=== PATIENT | male | born 1985 | race Caucasian/White ===

== ENCOUNTER 2018-01-26 15:49 | Inpatient (IN) | payer OTHER ==
[2018-01-26 16:55] VITALS: BMI 26.6
--- NOTE | 2018-01-26 21:55 | HP ---
COWS - Scale Resting Pulse: 0= GA 80 or Below Sweatin= Chills/Flushing Restless Observation: 1= Difficult to Sit Still Pupil Size: 1= Pupils >than Normal Bone or Joint Aches: 1= Mild Discomfort Runny Nose/ Eye Tearin= Constantly Teary/Runny GI Upset > 30mins: 1= Stomach Cramp Tremor Observation: 1= Tremor [place], Not Seen Yawning Observation: 2= >3x During Session Anxiety or Irritability: 2=Irritable/Anxious Goose Flesh Skin: 0=Smooth Skin COWS Score: 14 CIWA Score - CIWA Score Nausea/Vomitin-No Nausea/No Vomiting Muscle Tremors: 2 Anxiety: 3 Agitation: 4-Moderately Restless Paroxysmal Sweats: 2 Orientation: 0-Oriented Tacttile Disturbances: 0-None Auditory Disturbances: 0-None Visual Disturbances: 2-Mild Sensitivity Headache: 0-None Present CIWA-Ar Total Score: 13 Admission ROS S - HPI Chief Complaint: opioid and xanax withdrawal symptoms Allergies/Adverse Reactions: Allergies Allergy/AdvReac Type Severity Reaction Status Date / Time No Known Allergies Allergy Verified 01/26/18 21:54 History of Present Illness: 32 yo male with hx of heroin (nasal), cocaine and xanax dependence is here seeking detox. Last detox [facility] six years ago. Patient currently on parole for attempted robbery . PMHX: Denies any psychiatric or medical problems at this time. Denies suicidal / homicidal ideation or hx suicide attempt. Longest period of sobriety three years. Exam Limitations: No Limitations - Ebola screening Have you traveled outside of the country in the last 21 days: No Have you had contact with anyone from an Ebola affected area: No Have you been sick,other than usual withdrawal symptoms: No Do you have a fever: No - Review of Systems Constitutional: Chills, Loss of Appetite, Changes in sleep, Unintentional Wgt. Loss (20 lbs since july 2017) EENT: reports: Nose Congestion Respiratory: reports: No Symptoms reported Cardiac: reports: No Symptoms Reported GI: reports: Constipated (last BM two days ago), Abdominal cramping : reports: No Symptoms Reported Musculoskeletal: reports: Back Pain, Joint Pain Integumentary: reports: No Symptoms Reported Neuro: reports: No Symptoms reported Endocrine: reports: Increased Thirst Hematology: reports: No Symptoms Reported Psychiatric: reports: Orientated x3, Anxious Other Systems: Reviewed and Negative Patient History - Patient Medical History Hx Anemia: No Hx Asthma: No Hx Chronic Obstructive Pulmonary Disease (COPD): No Hx Cancer: No Hx Cardiac Disorders: No Hx Congestive Heart Failure: No Hx Hypertension: No Hx Hypercholesterolemia: No Hx Pacemaker: No HX Cerebrovascular Accident: No Hx Seizures: No Hx Dementia: No Hx Diabetes: No Hx Gastrointestinal Disorders: No Hx Liver Disease: No Hx Genitourinary Disorders: No Hx Sexually Transmitted Disorders: No Hx Renal Disease (ESRD): No Hx Thyroid Disease: No Hx Human Immunodeficiency Virus (HIV): No Hx Hepatitis C: No Hx Depression: No Hx Suicide Attempt: No Hx Bipolar Disorder: No Hx Schizophrenia: No - Patient Surgical History Past Surgical History: No - PPD History Previous Implant?: No Documented Results: Negative w/o proof PPD to be Administered?: Yes - Smoking Cessation Smoking history: Current every day smoker Have you smoked in the past 12 months: Yes Aproximately how many cigarettes per day: 20 Hx Chewing Tobacco Use: No Initiated information on smoking cessation: Yes 'Breaking Loose' booklet given: 01/26/18 - Substance & Tx. History Hx Alcohol Use: No Hx Substance Use: Yes Substance Use Type: Cocaine, Heroin, Tranquilizers Hx Substance Use Treatment: Yes (Last detox [facility] six years ago.) - Substances Abused Heroin Route: Inhalation Frequency: Daily Age of first use: 24 Date of Last Use: 01/26/18 Alprazolam (Xanax) Route: Oral Frequency: Daily Amount used: 2mg Age of first use: 22 Date of Last Use: 01/25/18 Cocaine Route: Inhalation Frequency: 1-3 times last 30 days Amount used: $20 Age of first use: 22 Date of Last Use: 01/25/18 Family Disease History - Family Disease History Family History: Denies Admission Physical Exam S - Vital Signs Vital Signs: Vital Signs - 24 hr 01/26/18 16:52 Temperature 97.8 F Pulse Rate 79 Respiratory 18 Rate Blood Pressure 137/68 - Physical General Appearance: Yes: Nourished, Disheveled, Mild Distress, Anxious HEENTM: Yes: EOMI, Hearing grossly Normal, Normal ENT Inspection, Normocephalic , Normal Voice, PILO, Pharynx Normal, Rhinorrhea Respiratory: Yes: Chest Non-Tender, Lungs Clear, Normal Breath Sounds, No Respiratory Distress, No Accessory Muscle Use Neck: Yes: No masses,lesions,Nodules, Trachea in good position Breast: Yes: Breast Exam Deferred Cardiology: Yes: Regular Rhythm, Regular Rate Abdominal: Yes: Normal Bowel Sounds, Non Tender, Flat, Soft Genitourinary: Yes: Within Normal Limits Back: Yes: Normal Inspection Extremities: Yes: Normal Capillary Refill, Normal Inspection, Normal Range of Motion, Non-Tender Neurological: Yes: smooth and burr worker composites II-XII NML intact, Fully Oriented, Alert, Motor Strength 5/5, Depressed Affect Integumentary: Yes: Normal Color, Warm, Diaphoresis Lymphatic: Yes: Within Normal Limits - Diagnostic (1) Opioid dependence with withdrawal Current Visit: Yes Status: Acute (2) Cocaine dependence Current Visit: Yes Status: Acute Qualifiers: Substance use status: uncomplicated Qualified Code(s): F14.20 - Cocaine dependence, uncomplicated (3) Nicotine dependence Current Visit: Yes Status: Acute Qualifiers: Nicotine product type: cigarettes (4) Weight loss Current Visit: Yes Status: Acute (5) Sedative hypnotic or anxiolytic dependence Current Visit: Yes Status: Acute Cleared for Admission [facility] - Detox or Rehab [facility] Level of Care: Medically Managed Detox Regimen/Protocol: Methadone/Valium S Breath Alcohol Content Breath Alcohol Content: 0 Urine Drug Screen - Results Drug Screen Negative: No Urine Drug Screen Results: THC-Marijuana, SAHIL-Cocaine, OPI-Opiates, BZO- Benzodiazepines, FEN-Fentanyl
[2018-01-26] MEDS ORDERED: MAG HYDROX/AL HYDROX/SIMETH 30 ML UNIT-DOSE CUP PO PRN (22:01)
[2018-01-26] MEDS ORDERED: METHADONE HCL 10 MG TABLET (FOR DETOX USE ONLY) PO ONE ×2 (22:01→23:00)
[2018-01-26] MEDS ORDERED: MAGNESIUM HYDROX 2400MG/30ML ORAL SUSPENSION 30 ML CUP PO PRN (22:01)
[2018-01-26] MEDS ORDERED: LOPERAMIDE HCL 2 MG CAPSULE PO PRN (22:01)
[2018-01-26] MEDS ORDERED: NICOTINE POLACRILEX 2 MG GUM BC PRN (22:01)
[2018-01-26] MEDS ORDERED: diazePAM 5 MG TABLET PO ONE (22:01)
[2018-01-26] MEDS ORDERED: MENTHOL/PHENOL 1 EACH UD MM PRN (22:01)
[2018-01-26] MEDS ORDERED: diazePAM 5 MG TABLET PO PRN (22:01)
[2018-01-26] MEDS ORDERED: MAGNESIUM CITRATE 300 ML BOTTLE PO PRN (22:01)
[2018-01-26] MEDS ORDERED: ACETAMINOPHEN 325 MG TABLET (FP) PO PRN (22:01)
[2018-01-26] MEDS ORDERED: P-EPHED 60MG/TRIPROLIDI 2.5MG TABLET PO PRN (22:01)
[2018-01-26] MEDS ORDERED: IBUPROFEN 400 MG TABLET (FP) PO PRN (22:01)
[2018-01-26] MEDS ORDERED: guaiFENesin/D-METHORPHAN HB 10 ML UNIT-DOSE CUPS PO PRN (22:01)
[2018-01-26] MEDS: diazePAM 5 MG TABLET PO SCH ×2 (23:49→23:59)
[2018-01-27 00:08] LABS: URINE APPEARANCE CLEAR; URINE BILIRUBIN NEGATIVE (<2.0 mg/dL); URINE COLOR YELLOW; URINE GLUCOSE (UA) NEGATIVE (NEGATIVE); URINE KETONE TRACE (NEGATIVE); URINE LEUK ESTERASE NEGATIVE (NEGATIVE); URINE NITRITE NEGATIVE (NEGATIVE); URINE PROTEIN NEGATIVE (NEGATIVE)
[2018-01-27] MEDS: diazePAM 5 MG TABLET PO SCH ×4 (05:43→22:41)
[2018-01-27] MEDS ORDERED: METHADONE HCL 10 MG TABLET (FOR DETOX USE ONLY) PO SCH (10:00)
[2018-01-27 10:40] LABS: HEMATOCRIT 44.1 % (35.4-49); HEMOGLOBIN 14.3 GM/dL (11.7-16.9); MCHC 32.4 g/dl (32.0-35.9); MEAN CELL VOLUME 89.6 fl (80-96); MEAN PLT VOLUME 10.5 fl (7.5-11.1); PLATELET COUNT 213 K/MM3 (134-434); RBC 4.92 M/mm3 (4.00-5.60); RDW 13.9 % (11.9-15.9); WHITE BLOOD COUNT 6.8 K/mm3 (4.0-10.0)
[2018-01-27] MEDS: NICOTINE 21 MG/24 HOURS TOPICAL PATCH TD SCH (10:42)
[2018-01-27] MEDS: PRENATAL VITAMINS W/ FOLIC ACID TABLET (FP) PO SCH (10:42)
[2018-01-27 10:55] LABS: CHLORIDE 106 mmol/L (98-107); POTASSIUM 4.3 mmol/L (3.5-5.1); SODIUM 143 mmol/L (136-145)
[2018-01-27 11:17] LABS: ALBUMIN 3.8 g/dl (3.4-5.0); ALK PHOS 81 U/L (45-117); ANION GAP 8 MMOL/L (8-16); BILIRUBIN,TOTAL 0.4 mg/dL (0.2-1.0); BLOOD UREA NITROGEN 16 mg/dL (7-18); CALCIUM 8.9 mg/dL (8.5-10.1); CO2 29 mmol/L (21-32); GLUCOSE,RANDOM 86 mg/dL (74-106); SGOT/AST 33 U/L (15-37); SGPT/ALT 59 U/L (13-61); TOT PROT 6.9 g/dl (6.4-8.2)
--- NOTE | 2018-01-27 12:30 | CONSULT ---
[facility] Psychiatric Consult - Data Date of interview: 01/27/18 Admission source: [facility] Identifying data: Patient is a 32 year old single male, without children, unemployed, domiciled, and is supported by family. This is patient's first admission to detox at [facility]. Pt. admited to for opiate dependence. Substance Abuse History: Smoking Cessation. Smoking history: Current every day smoker. Have you smoked in the past 12 months: Yes. Aproximately how many cigarettes per day: 20. Hx Chewing Tobacco Use: No. Initiated information on smoking cessation: Yes. 'Breaking Loose' booklet given: 01/26/18. - Substance & Tx. History. Hx Alcohol Use: No. Hx Substance Use: Yes. Substance Use Type : Cocaine, Heroin, Tranquilizers. Hx Substance Use Treatment: Yes (Last detox [facility] six years ago.). - Substances Abused. Heroin. Route: Inhalation. Frequency: Daily. Age of first use: 24. Date of Last Use: . Alprazolam (Xanax). Route: Oral. Frequency: Daily. Amount used: 2mg. Age of first use: 22. Date of Last Use: 01/25/18. Cocaine. Route: Inhalation. Frequency: 1-3 times last 30 days. Amount used: $20. Age of first use: 22. Date of Last Use: 01/25/18 Medical History: denies. Psychiatric History: Patient denies h/o psychiatric hospitalization, outpatient care, and suicide attempt. Pt. reports poor sleep. Physical/Sexual Abuse/Trauma History: denies Mental Status Exam - Mental Status Exam Alert and Oriented to: Time, Place, Person Cognitive Function: Good Patient Appearance: Well Groomed Mood: Euthymic Affect: Mood Congruent Patient Behavior: Fatigued (Patient falling asleep but able to complete interview. ), Cooperative Speech Pattern: Delayed Voice Loudness: Moderately Soft/Quiet Thought Process: Goal Oriented Thought Disorder: Not Present Hallucinations: Denies Suicidal Ideation: Denies Homicidal Ideation: Denies Insight/Judgement: Poor Sleep: Poorly Appetite: Fair Muscle strength/Tone: Normal Gait/Station: Normal Psychiatric Findings - Problem List ([place] 1, 2,3) (1) Cocaine dependence Current Visit: Yes Status: Acute Qualifiers: Substance use status: uncomplicated Qualified Code(s): F14.20 - Cocaine dependence, uncomplicated (2) Nicotine dependence Current Visit: Yes Status: Chronic Qualifiers: Nicotine product type: cigarettes (3) Opioid dependence with withdrawal Current Visit: Yes Status: Acute (4) Sedative hypnotic or anxiolytic dependence Current Visit: Yes Status: Acute (5) Substance-induced sleep disorder Current Visit: Yes Status: Acute - Initial Treatment Plan Initial Treatment Plan: Psychoeducation provided. Detoxification in progress. Pt. informed to accept melatonin 5mg for insomnia. Observation.
--- NOTE | 2018-01-27 14:38 | PN ---
S CIWA - CIWA Score Nausea/Vomitin-No Nausea/No Vomiting Muscle Tremors: 1-None Visible, but [place] Anxiety: 2 Agitation: 0-Normal Activity Paroxysmal Sweats: No Perspiration Orientation: 0-Oriented Tacttile Disturbances: 0-None Auditory Disturbances: 0-None Visual Disturbances: 0-None Headache: 0-None Present CIWA-Ar Total Score: 3 [facility] COWS - Scale Resting Pulse: 0= [place] 80 or Below Sweatin= No chills or Flushing Restless Observation: 0= Sits Still Pupil Size: 0= Normal to Room Light Bone or Joint Aches: 1= Mild Discomfort Runny Nose/ Eye Tearin= None GI Upset > 30mins: 1= Stomach Cramp Tremor Observation of Outstretched Hands: 1= Tremor [place], Not Seen Yawning Observation: 0= None Anxiety or Irritability: 1=Feels Anxious/Irritable Goose Flesh Skin: 0=Smooth Skin COWS Score: 4 S Progress Note (SOAP) Subjective: PATIENT C/O MILD TREMORS, ANXIETY AND BODY ACHES. Objective: 01/27/18 14:37 Vital Signs Temperature 97.2 F L 01/27/18 13:41 Pulse Rate 72 01/27/18 13:41 Respiratory Rate 18 01/27/18 13:41 Blood Pressure 116/84 01/27/18 13:41 O2 Sat by Pulse Oximetry (%) Laboratory Tests 01/26/18 01/27/18 01/27/18 Unknown 07:00 07:00 WBC 6.8 RBC 4.92 Hgb 14.3 Hct 44.1 MCV 89.6 MCH 29.0 MCHC 32.4 RDW 13.9 Plt Count 213 MPV 10.5 Sodium 143 Potassium 4.3 Chloride 106 Carbon Dioxide 29 Anion Gap 8 BUN 16 Creatinine 1.0 Creat Clearance w eGFR > 60 Random Glucose 86 Calcium 8.9 Total Bilirubin 0.4 AST 33 ALT 59 Alkaline Phosphatase 81 Total Protein 6.9 Albumin 3.8 Urine Color Yellow Urine Appearance Clear Urine pH 6.0 Ur Specific [place] 1.027 Urine Protein Negative Urine Glucose (UA) Negative Urine Ketones Trace H Urine Blood Negative Urine Nitrite Negative Urine Bilirubin Negative Urine Urobilinogen 2.0 Ur Leukocyte Esterase Negative RPR Titer HIV 1&2 Antibody Screen HIV P24 Antigen 01/27/18 01/27/18 07:00 07:00 WBC RBC Hgb Hct MCV MCH MCHC RDW Plt Count MPV Sodium Potassium Chloride Carbon Dioxide Anion Gap BUN Creatinine Creat Clearance w eGFR Random Glucose Calcium Total Bilirubin AST ALT Alkaline Phosphatase Total Protein Albumin Urine Color Urine Appearance Urine pH Ur Specific [place] Urine Protein Urine Glucose (UA) Urine Ketones Urine Blood Urine Nitrite Urine Bilirubin Urine Urobilinogen Ur Leukocyte Esterase RPR Titer Nonreactive HIV 1&2 Antibody Screen Negative HIV P24 Antigen Negative Assessment: 01/27/18 14:37 WITHDRAWAL SYNDROME Plan: CONTINUE DETOX PER PROTOCOL.
--- NOTE | 2018-01-27 15:41 | EKG ---
Test Reason : Blood Pressure : / mmHG Vent. Rate : 080 BPM Atrial Rate : 080 BPM P-R Int : 174 ms QRS Dur : 084 ms QT Int : 368 ms P-R-T Axes : 042 066 006 degrees QTc Int : 424 ms NORMAL SINUS RHYTHM NORMAL ECG NO PREVIOUS ECGS AVAILABLE Confirmed by DECLAN SMART MD ([id number]) on 01/27/2018 3:41:34 PM Referred By: Confirmed By:DECLAN SMART MD
[2018-01-27] MEDS: THIAMINE HCL 100 MG TABLET (FP) PO SCH (22:40)
--- NOTE | 2018-01-28 10:37 | PN ---
[facility] CIWA - CIWA Score Nausea/Vomitin-No Nausea/No Vomiting Muscle Tremors: None Anxiety: 0-No Anxiety, at Ease Agitation: 0-Normal Activity Paroxysmal Sweats: 1-Minimal Palms Moist Orientation: 0-Oriented Tacttile Disturbances: 0-None Auditory Disturbances: 0-None Visual Disturbances: 0-None Headache: 0-None Present CIWA-Ar Total Score: 1 [facility] COWS - Scale Resting Pulse: 0= [place] 80 or Below Sweatin= No chills or Flushing Restless Observation: 0= Sits Still Pupil Size: 0= Normal to Room Light Bone or Joint Aches: 0= None Runny Nose/ Eye Tearin= Nasal Congestion GI Upset > 30mins: 0= None Tremor Observation of Outstretched Hands: 0= None Yawning Observation: 0= None Anxiety or Irritability: 0= None Goose Flesh Skin: 0=Smooth Skin COWS Score: 1 [facility] Progress Note (SOAP) Subjective: PATIENT C/O MILD NASAL CONGESTION AND COLD SWEATS Objective: 01/28/18 10:36 Laboratory Tests 01/26/18 01/27/18 01/27/18 Unknown 07:00 07:00 WBC 6.8 RBC 4.92 Hgb 14.3 Hct 44.1 MCV 89.6 MCH 29.0 MCHC 32.4 RDW 13.9 Plt Count 213 MPV 10.5 Sodium 143 Potassium 4.3 Chloride 106 Carbon Dioxide 29 Anion Gap 8 BUN 16 Creatinine 1.0 Creat Clearance w eGFR > 60 Random Glucose 86 Calcium 8.9 Total Bilirubin 0.4 AST 33 ALT 59 Alkaline Phosphatase 81 Total Protein 6.9 Albumin 3.8 Urine Color Yellow Urine Appearance Clear Urine pH 6.0 Ur Specific [place] 1.027 Urine Protein Negative Urine Glucose (UA) Negative Urine Ketones Trace H Urine Blood Negative Urine Nitrite Negative Urine Bilirubin Negative Urine Urobilinogen 2.0 Ur Leukocyte Esterase Negative RPR Titer HIV 1&2 Antibody Screen HIV P24 Antigen 01/27/18 01/27/18 07:00 07:00 WBC RBC Hgb Hct MCV MCH MCHC RDW Plt Count MPV Sodium Potassium Chloride Carbon Dioxide Anion Gap BUN Creatinine Creat Clearance w eGFR Random Glucose Calcium Total Bilirubin AST ALT Alkaline Phosphatase Total Protein Albumin Urine Color Urine Appearance Urine pH Ur Specific [place] Urine Protein Urine Glucose (UA) Urine Ketones Urine Blood Urine Nitrite Urine Bilirubin Urine Urobilinogen Ur Leukocyte Esterase RPR Titer Nonreactive HIV 1&2 Antibody Screen Negative HIV P24 Antigen Negative Vital Signs Temperature 97.7 F 01/28/18 09:59 Pulse Rate 94 H 01/28/18 09:59 Respiratory Rate 20 01/28/18 09:59 Blood Pressure 118/75 01/28/18 09:59 O2 Sat by Pulse Oximetry (%) SKIN: WARM AND MOIST CAR : S1S2 RESP: CTA BL EXT: NO EDEMA Assessment: 01/28/18 10:37 WITHDRAWAL SYNDROME Plan: CONTINUE DETOX PER PROTOCOL ENCOURAGE ORAL FLUIDS CONTINUE TO MONITOR CLINICALLY
[2018-01-28] MEDS: NICOTINE 21 MG/24 HOURS TOPICAL PATCH TD SCH (10:42)
[2018-01-28] MEDS: diazePAM 5 MG TABLET PO SCH ×2 (10:43→22:32)
[2018-01-28] MEDS: METHADONE HCL 5 MG TABLET (FOR DETOX USE ONLY) PO SCH (10:43)
[2018-01-28] MEDS: PRENATAL VITAMINS W/ FOLIC ACID TABLET (FP) PO SCH (10:43)
[2018-01-28] MEDS ORDERED: ONDANSETRON 8 MG TABLET (FP) PO PRN (12:25)
[2018-01-28] MEDS: THIAMINE HCL 100 MG TABLET (FP) PO SCH (22:32)
[2018-01-29] MEDS: PRENATAL VITAMINS W/ FOLIC ACID TABLET (FP) PO SCH (10:41)
[2018-01-29] MEDS: diazePAM 5 MG TABLET PO SCH ×2 (10:41→22:55)
[2018-01-29] MEDS: METHADONE HCL 5 MG TABLET (FOR DETOX USE ONLY) PO SCH (10:41)
[2018-01-29] MEDS: NICOTINE 21 MG/24 HOURS TOPICAL PATCH TD SCH (10:42)
--- NOTE | 2018-01-29 14:12 | PN ---
[facility] Progress Note (SOAP) Subjective: patient reports feeling nauseous , fatigued Objective: 01/29/18 14:11 CBC, BMP 01/27/18 07:00 01/27/18 07:00 Vital Signs Temperature 97.3 F L 01/29/18 11:08 Pulse Rate 80 01/29/18 11:08 Respiratory Rate 20 01/29/18 11:08 Blood Pressure 118/77 01/29/18 11:08 O2 Sat by Pulse Oximetry (%) aaox 3 , nad , resting comfortably in bed Assessment: 01/29/18 14:11 opioid and benzodiazepine dependence Plan: continue taper , prn meds for symptomatic relief encouraged p.o. fluids
[2018-01-29] MEDS: THIAMINE HCL 100 MG TABLET (FP) PO SCH (22:55)
[2018-01-29] MEDS: MELATONIN 5 MG TABLETS PO PRN (22:55)
[2018-01-30] MEDS ORDERED: diazePAM 5 MG TABLET PO SCH (10:00)
[2018-01-30] MEDS ORDERED: METHADONE HCL 10 MG TABLET (FOR DETOX USE ONLY) PO SCH (10:00)
[2018-01-30] MEDS: PRENATAL VITAMINS W/ FOLIC ACID TABLET (FP) PO SCH (10:55)
[2018-01-30] MEDS: NICOTINE 21 MG/24 HOURS TOPICAL PATCH TD SCH (10:56)
--- NOTE | 2018-01-30 15:19 | PN ---
[facility] Progress Note (SOAP) Subjective: Chills, sweating, interrupted sleep (no sleep x 2 days); patient later told nurse that his PCP referred him for circumcision and that his foreskin on penis is hurting. Starting Gate Driver instructed RN to offer pain medication and instruct patient to follow up with his PCP. Patient is for discharge home tomorrow. Objective: 01/30/18 15:17 Last Vital Signs Temp Pulse Resp BP Pulse Ox 98.0 F 97 H 18 101/67 01/30/18 13:56 01/30/18 13:56 01/30/18 13:56 01/30/18 13:56 Laboratory Tests 01/26/18 01/27/18 01/27/18 Unknown 07:00 07:00 WBC 6.8 RBC 4.92 Hgb 14.3 Hct 44.1 MCV 89.6 MCH 29.0 MCHC 32.4 RDW 13.9 Plt Count 213 MPV 10.5 Sodium 143 Potassium 4.3 Chloride 106 Carbon Dioxide 29 Anion Gap 8 BUN 16 Creatinine 1.0 Creat Clearance w eGFR > 60 Random Glucose 86 Calcium 8.9 Total Bilirubin 0.4 AST 33 ALT 59 Alkaline Phosphatase 81 Total Protein 6.9 Albumin 3.8 Urine Color Yellow Urine Appearance Clear Urine pH 6.0 Ur Specific [place] 1.027 Urine Protein Negative Urine Glucose (UA) Negative Urine Ketones Trace H Urine Blood Negative Urine Nitrite Negative Urine Bilirubin Negative Urine Urobilinogen 2.0 Ur Leukocyte Esterase Negative RPR Titer HIV 1&2 Antibody Screen HIV P24 Antigen 01/27/18 01/27/18 07:00 07:00 WBC RBC Hgb Hct MCV MCH MCHC RDW Plt Count MPV Sodium Potassium Chloride Carbon Dioxide Anion Gap BUN Creatinine Creat Clearance w eGFR Random Glucose Calcium Total Bilirubin AST ALT Alkaline Phosphatase Total Protein Albumin Urine Color Urine Appearance Urine pH Ur Specific [place] Urine Protein Urine Glucose (UA) Urine Ketones Urine Blood Urine Nitrite Urine Bilirubin Urine Urobilinogen Ur Leukocyte Esterase RPR Titer Nonreactive HIV 1&2 Antibody Screen Negative HIV P24 Antigen Negative Labs reviewed Assessment: 01/30/18 15:18 Withdrawal symptoms Plan: Continue detox Encouraged PO water hydration
[2018-01-30] MEDS: MELATONIN 5 MG TABLETS PO PRN (22:30)
[2018-01-30] MEDS: THIAMINE HCL 100 MG TABLET (FP) PO SCH (22:30)
[2018-01-31] MEDS ORDERED: METHADONE HCL 5 MG TABLET (FOR DETOX USE ONLY) PO SCH (06:00)
[2018-01-31 09:20] VITALS: BP 122/80; PULSE 120; TEMP 99.1
--- NOTE | 2018-01-31 09:23 | PN ---
[facility] Progress Note Note: 32 years old male admitted on 01/26/18 for opiate and benzo withdrawal sx completed opiate and benzo detox regimen tolerated well deniies opiate and benzo withdrawal sx alert oriented x 3 c/o penis pain and unable to retract foreskin and difficulty of urination foreskin appears to be swelling and immobile patient requests minesweeping officer to be informed the counselor called the parole and [place] [employer] as chemical rehabilitation aftercare patient had foreskin issue 3-4 months ago evaluated by the primary care uvaldo circumcision procedure recommended ambulance called at 0918 and information provided to the ER at 0921
[2018-01-31] MEDS: NICOTINE 21 MG/24 HOURS TOPICAL PATCH TD SCH (10:07)
[2018-01-31] MEDS: PRENATAL VITAMINS W/ FOLIC ACID TABLET (FP) PO SCH (10:07)
[2018-01-31] MEDS ORDERED: ONDANSETRON *ODT* 4 MG TABLET SL PRN (12:43)
--- NOTE | 2018-01-31 15:35 | DS ---
[facility] Detox Discharge Summary Admission Date: 01/26/18 Discharge Date: 01/31/18 - History Additional Comments: pt sent to [facility] ED prior to this provider's arrival on unit Pt appears to have completed detox prior to being sent to the ED - Physical Exam Results Vital Signs: Vital Signs Temperature 99.1 F 01/31/18 09:20 Pulse Rate 120 H 01/31/18 09:20 Respiratory Rate 20 01/31/18 09:20 Blood Pressure 122/80 01/31/18 09:20 O2 Sat by Pulse Oximetry (%) Pertinent Admission Physical Exam Findings: withdrawal sx - Medication Discharge Medications: Ambulatory Orders NK [No Known Home Medication] 01/26/18 - AMA Did Patient Leave Against Medical Advice: No
== END 2018-01-31 09:37 | disposition short-term general hospital (02) | DRG 773 ==
LOC: YASAS 15:49 → Y3N 22:31
PROC: HZ2ZZZZ Detoxification Services for Substance Abuse Treatment (ICD-10-PCS; principal; 2018-01-26)
DX: F11.23 Opioid dependence with withdrawal (principal); F13.20 Sedative, hypnotic or anxiolytic dependence, uncomplicated; F14.20 Cocaine dependence, uncomplicated; F17.210 Nicotine dependence, cigarettes, uncomplicated; F19.282 Other psychoactive substance dependence with psychoactive substance-induced sleep disorder; R63.4 Abnormal weight loss; Z68.26 Body mass index [BMI] 26.0-26.9, adult
CPT/HCPCS: 36415; 80053; 81003; 85027; 86593; 87389; 93005; 93010

== ENCOUNTER 2018-01-31 09:59 | Emergency (ER) | payer OTHER ==
[2018-01-31 10:13] VITALS: BP 117/74; PULSE 102; TEMP 98.3; BMI 26.6
--- NOTE | 2018-01-31 10:39 | PDOC ---
History of Present Illness <Shaan Mccullough - Last Filed: 01/31/18 10:36> - History of Present Illness Initial Comments: Patient is a 32 year old male with history of illicit drug use (heroin (nasal), cocaine and xanax use). Patient states that he was just discharged from Detox at [facility]. Patient states that he has a referral to be circumcised but is unclear as to why his nuclear security officer sent him to the ER. He does not have any acute complaints at this time. Denies any recent swelling or pain around the foreskin of the penis. <Rachel Owens - Last Filed: 01/31/18 10:52> - General Chief Complaint: Pain Stated Complaint: Penile PAIN Time Seen by Provider: 01/31/18 10:32 Past History - Past Medical History Anemia: No Asthma: No Cancer: No Cardiac Disorders: No CVA: No COPD: No CHF: No Dementia: No Diabetes: No GI Disorders: No Disorders: No HTN: No Hypercholesterolemia: No Kidney Stones: No Liver Disease: No Seizures: No Thyroid Disease: No - Surgical History Abdominal Surgery: No Appendectomy: No Cardiac Surgery: No Cholecystectomy: No Lung Surgery: No Neurologic Surgery: No Orthopedic Surgery: No - Reproductive History Testicular Surgery: No - Suicide/Smoking/Psychosocial Hx Smoking History: Never smoked Have you smoked in the past 12 months: Yes Number of Cigarettes Smoked Daily: 20 Information on smoking cessation initiated: No 'Breaking Loose' booklet given: 01/26/18 Hx Alcohol Use: No Drug/Substance Use Hx: No Substance Use Type: Heroin, Prescribed Hx Substance Use Treatment: Yes (Last detox [facility] six years ago.) <Shaan Mccullough - Last Filed: 01/31/18 10:36> <Rachel Owens - Last Filed: 01/31/18 10:52> - Past Medical History Allergies/Adverse Reactions: Allergies Allergy/AdvReac Type Severity Reaction Status Date / Time No Known Allergies Allergy Verified 01/31/18 10:11 Home Medications: Ambulatory Orders NK [No Known Home Medication] 01/26/18 Review of Systems - Review of Systems Comments:: 01/31/18 10:36 ROS: A complete review of 10 out of 10 review of systems is taken and is negative apart from what is previously mentioned below and in the HPI. <Shaan Mccullough - Last Filed: 01/31/18 10:36> *Physical Exam - Vital Signs Last Vital Signs Temp Pulse Resp BP Pulse Ox 98.3 F 102 H 16 117/74 100 01/31/18 10:02 01/31/18 10:02 01/31/18 10:02 01/31/18 10:02 01/31/18 10:02 - Physical Exam Comments: 01/31/18 10:36 Vitals: Triage Vital signs reviewed General Appearance: no acute distress, well nourished well developed, Head: Atraumatic, Abdomen: Soft, non distended, normal bowel sounds, non tender to palpation Genitourinary: Phimosis noted on penile examination unable to fully retract foreskin. No evidence of strangulation no evidence of infection at this time Extremities: Full range of motion to all extremities, no cyanosis, clubbing, or edema Skin: Warm and dry, no rashes or lesions, no rash, no petechiae Psych: normal mood, normal affect <Shaan Mccullough - Last Filed: 01/31/18 10:36> - Vital Signs Last Vital Signs Temp Pulse Resp BP Pulse Ox 98.3 F 102 H 16 117/74 100 01/31/18 10:02 01/31/18 10:02 01/31/18 10:02 01/31/18 10:02 01/31/18 10:02 <Rachel Owens - Last Filed: 01/31/18 10:52> Medical Decision Making - Medical Decision Making 01/31/18 10:37 Patient presents ED with phimosis. Has scheduled follow-up with a urologist however was instructed by his nuclear security officer to come to the ED unclear why. Patient with no acute complaints at this time was just discharged from detox. No evidence of strangulation or infection on genitourinary examination Patient will follow up with his urologist very strict return instructions discussed. Findings, need for follow-up and strict return instructions discussed the patient. <Shaan Mccullough - Last Filed: 01/31/18 10:36> *DC/Admit/Observation/Transfer - Discharge Dispostion Decision to Admit order: No <Shaan Mccullough - Last Filed: 01/31/18 10:36> <Rachel Owens - Last Filed: 01/31/18 10:52> Diagnosis at time of Disposition: Phimosis - Discharge Dispostion Disposition: HOME Condition at time of disposition: Good - Referrals Referrals: [facility] [place] [facility] [place] [Provider Group] Alfred Nur MD [Staff Physician] - - Patient Instructions Printed Discharge Instructions: Phimosis Additional Instructions: Follow-up with your urologist or the urologist referred on this paperwork this week for circumcision for correction of phimosis. Return to ED for any strangulation of the penile head swelling redness signs of infection or for any concerns.
== END 2018-01-31 10:41 | disposition home or self-care (01) ==
LOC: JER 09:59
DX: N47.1 Phimosis (principal); F19.10 Other psychoactive substance abuse, uncomplicated
CPT/HCPCS: 99281-25